=== PATIENT | female | born 1980 | race American Indian/Alaskan Native ===

== ENCOUNTER 2017-12-01 22:08 | Emergency (ER) | payer SELFPAY ==
[2017-12-01 22:16] VITALS: BP 127/81
--- NOTE | 2017-12-01 23:18 | XRay Report ---
FINAL REPORT EXAM: XR KNEE 3V RT HISTORY: pain and swelling r/t fall COMPARISON: None available. FINDINGS: Three views of right knee obtained. Mild narrowing of the medial joint space with osteophyte. Mild narrowing hypertrophic spurring of the patellofemoral joint space. No acute fracture dislocation. Tiny suprapatellar effusion. IMPRESSION: No acute bony abnormality. Mild degenerative changes and tiny suprapatellar effusion.
--- NOTE | 2017-12-01 23:19 | XRay Report ---
FINAL REPORT EXAM: XR HAND 3+V RT HISTORY: pain r/t fall COMPARISON: None available. FINDINGS: Three views the right hand obtained. Bony structures are intact. Joint spaces are preserved. No acute fracture dislocation. IMPRESSION: No acute bony abnormality.
[2017-12-02] MEDS ORDERED: NORCO 7.5/325 ONE (02:18)
[2017-12-02] MEDS ORDERED: NORCO 7.5/325 PO ONE (02:19)
--- NOTE | 2017-12-02 05:02 | Emergency Department Report ---
ED Lower Extremity HPI - General Chief Complaint: Extremity Injury, Lower Stated Complaint: FALL Time Seen by Provider: 12/02/17 03:44 Source: patient Mode of arrival: Wheelchair Limitations: No Limitations - History of Present Illness Initial Comments: This is a 37 y.o. female that presents with right knee and right hand pain from fall yesterday in grocery store. Patient states she slipped on liquid in grocery store. She landed on her right knee and tried to break fall with right hand. States pain is worse with movement of right knee and very painful to walk on right lower extremity. Pain is 8/10 on pain scale to right knee. The store gave her an ice pack to apply to knee and she came directly here. She is seeing Dr. Benigno Handley in [place] for Primary Care. Denies swelling, deformity, discoloration, numbness, and tingling. Complaint: knee injury, fall Onset/Timin -: Gradual Injury: Knee: Right Type of Injury: blunt Place: other (grocery store) Severity: severe Severity scale (0 -10): 8 Improves With: cold therapy Worsens With: weight bearing, movement Context: fall Associated Symptoms: unable to bear weight Treatments Prior to Arrival: cold therapy - Related Data Home Medications Medication Instructions Recorded Confirmed Last Taken Triamter/Hctz 37.5-25 mg 1 tab PO QDAY 06/16/14 06/16/14 06/16/14 08:00 [Maxzide-25] Previous Rx's Medication Instructions Recorded Last Taken Type Acetaminophen/Codeine 1 tab PO Q6H PRN #10 tab 06/16/14 Unknown Rx [Acetaminophen-Codeine #3 TAB] Amoxicillin [Trimox CAP] 2 tab PO BID #40 capsule 06/16/14 Unknown Rx Ibuprofen [Motrin 800 MG tab] 800 mg PO Q8H #30 tablet 06/16/14 Unknown Rx Tizanidine HCl [Zanaflex] 4 mg PO TID PRN #20 capsule 12/02/17 Unknown Rx traMADol [Ultram 50 MG tab] 50 mg PO Q6HR PRN #20 tablet 12/02/17 Unknown Rx Allergies Allergy/AdvReac Type Severity Reaction Status Date / Time No Known Allergies Allergy Unverified 06/16/14 22:05 ED Review of Systems ROS: Stated complaint: FALL Other details as noted in HPI Constitutional: denies: chills, fever Respiratory: denies: cough, shortness of breath, wheezing Cardiovascular: denies: chest pain, palpitations, dyspnea on exertion, edema Gastrointestinal: denies: abdominal pain, nausea, vomiting, diarrhea Musculoskeletal: arthralgia (right knee and hand). denies: back pain, joint swelling Skin: denies: rash, lesions Neurological: denies: headache, weakness, paresthesias ED Past Medical Hx - Past Medical History Hx Hypertension: Yes - Surgical History Past Surgical History?: No - Social History Smoking Status: Never Smoker Substance Use Type: None - Medications Home Medications: Home Medications Medication Instructions Recorded Confirmed Last Taken Type Acetaminophen/Codeine 1 tab PO Q6H PRN #10 tab 06/16/14 Unknown Rx [Acetaminophen-Codeine #3 TAB] Amoxicillin [Trimox CAP] 2 tab PO BID #40 capsule 06/16/14 Unknown Rx Ibuprofen [Motrin 800 MG tab] 800 mg PO Q8H #30 tablet 06/16/14 Unknown Rx Triamter/Hctz 37.5-25 mg 1 tab PO QDAY 06/16/14 06/16/14 06/16/14 08:00 History [Maxzide-25] Tizanidine HCl [Zanaflex] 4 mg PO TID PRN #20 capsule 12/02/17 Unknown Rx traMADol [Ultram 50 MG tab] 50 mg PO Q6HR PRN #20 tablet 12/02/17 Unknown Rx ED Physical Exam - General Limitations: No Limitations General appearance: alert, in no apparent distress - Respiratory Respiratory exam: Present: normal lung sounds bilaterally. Absent: respiratory distress, wheezes, rales, rhonchi, stridor - Cardiovascular Cardiovascular Exam: Present: regular rate, normal rhythm, normal heart sounds. Absent: systolic murmur, diastolic murmur, rubs, gallop - GI/Abdominal GI/Abdominal exam: Present: soft, normal bowel sounds. Absent: distended, tenderness, guarding, rebound, rigid, organomegaly, mass - Expanded Upper Extremity Exam Right Shoulder Exam: Present: normal inspection, full ROM Upper Arm exam: Present: normal inspection, full ROM Elbow exam: Present: normal inspection, full ROM Forearm Wrist exam: Present: normal inspection, full ROM Hand Wrist exam: Present: normal inspection, full ROM Neuro motor exam: Present: wrist extension intact, thumb opposition intact, thumb IP flexion intact, thumb adduction intact, fingers 2-5 abduction intact Neurosensory exam: Present: radial nerve intact, median nerve intact Vascular: Present: normal capillary refill, radial pulse (+2) - Expanded Lower Extremity Exam Right Hip exam: Present: normal inspection, full ROM Upper Leg exam: Present: normal inspection, full ROM Knee exam: Present: swelling, pain w/ pronation/supination. Absent: full ROM ( limited ROM 2/2 pain), abrasion, laceration, ecchymosis, deformity, crepidus, dislocation, erythema, posterior draw sign Lower Leg exam: Present: normal inspection. Absent: tenderness, swelling, abrasion, laceration, ecchymosis, deformity, crepidus, dislocation, erythema, palpable cord, Barrera's sign Ankle exam: Present: normal inspection, full ROM Foot/Toe exam: Present: normal inspection, full ROM Neuro vascular tendon exam: Present: no vascular compromise Gait: Positive: unable to bear weight - Neurological Exam Neurological exam: Present: alert, oriented X3, abnormal gait (unable to bear weight to RLE) - Psychiatric Psychiatric exam: Present: normal affect, normal mood - Skin Skin exam: Present: warm, dry, intact, normal color. Absent: rash ED Course Vital Signs 12/01/17 22:12 Temperature 98.7 F Pulse Rate 66 Respiratory 18 Rate Blood Pressure 127/81 O2 Sat by Pulse 100 Oximetry ED Lower Extremity MDM - Radiology Data Radiology results: report reviewed XR of right hand: No acute bony abnormality. XR of right knee: No acute bony abnormality. Mild degenerative changes and tiny suprapatellar effusion. - Medical Decision Making This is a 37 y.o. female that presents with right hand and knee pain from fall yesterday. Patient was examined by me. Denies LOC, chest pain, abdominal pain, SOB, and numbness and tingling. Xray of right hand and knee obtained. XR of right hand: No acute bony abnormality. XR of right knee: No acute bony abnormality. Mild degenerative changes and tiny suprapatellar effusion. Patient informed of results. Start zanaflax 4 mg po tid and tramadol 50 mg q6h prn for pain and follow up with PCP. Continue using ice for 20 minutes on and 2 hours off for 24 hours then use heat. Elevate RLE while sitting. Plan discussed with patient to discharge home and treat outpatient. She agrees with ER plan. Patient discharged home in stable condition. Follow up with PCP in 2-3 days. Critical care attestation.: If time is entered above; I have spent that time in minutes in the direct care of this critically ill patient, excluding procedure time. ED Disposition Clinical Impression: Knee effusion, right, Right medial knee pain Strain of right hand Qualifiers: Encounter type: initial encounter Qualified Code(s): S66.911A - Strain of unspecified muscle, fascia and tendon at wrist and hand level, right hand, initial encounter Disposition: TO HOME OR SELFCARE Is pt being admited?: No Does the pt Need Aspirin: No Condition: Stable Instructions: Knee Effusion (ED), Arthralgia (ED) Additional Instructions: Rest Use ice or heat on affected area for 20 minutes and off for 2 hours. Take pain medication as needed for pain. Don't drive or operate heavy machinery while taking muscle relaxers because they may cause drowsiness. Follow up with Primary Care Provider in 2-3 days. Prescriptions: Tizanidine HCl [Zanaflex] 4 mg PO TID PRN #20 capsule PRN Reason: Muscle Spasm traMADol [Ultram 50 MG tab] 50 mg PO Q6HR PRN #20 tablet PRN Reason: Pain Referrals: [facility] [Outside] - 3-5 Days [facility] [Provider Group] - 3-5 Days [facility] [Provider Group] - 3-5 Days Forms: Work/School Release Form(ED) Time of Disposition: 05:17 Print Language: ERITREAN
== END 2017-12-02 05:27 | disposition home or self-care (01) ==
LOC: ED 22:08
DX: S66.911A Strain of unspecified muscle, fascia and tendon at wrist and hand level, right hand, initial encounter (principal); M25.461 Effusion, right knee; I10 Essential (primary) hypertension; W01.0XXA Fall on same level from slipping, tripping and stumbling without subsequent striking against object, initial encounter; Y93.89 Activity, other specified; Y92.89 Other specified places as the place of occurrence of the external cause; Y99.8 Other external cause status
CPT/HCPCS: 99283